=== PATIENT | female | born 1985 | race Caucasian/White ===

== ENCOUNTER 2018-07-14 13:13 | Inpatient (IN) | payer OTHER, BC ==
[2018-07-14] MEDS ORDERED: METHYLERGONOVINE 0.2 MG/ML 1 ML AMP IM PRN (13:57)
[2018-07-14] MEDS ORDERED: CARBOPROST TROMETHAMINE 250 MCG/ML 1 ML AMP IM PRN (13:57)
[2018-07-14] MEDS ORDERED: OXYTOCIN 10 UNIT/ML 1 ML VIAL IM PRN (13:57)
[2018-07-14] MEDS ORDERED: LIDOCAINE 0.5% (PF) 5 MG/ML (50 ML SDV) SQ PRN (13:57)
[2018-07-14] MEDS ORDERED: TERBUTALINE 1 MG/ML VIAL SQ PRN (13:57)
[2018-07-14] MEDS ORDERED: LABETALOL 200 MG TAB PO STA (14:00)
[2018-07-14] MEDS ORDERED: OXYTOCIN 30 UNITS/500 ML NS 30 UNIT in SALINE 1 500ML.BAG IV SCH (14:00)
[2018-07-14] MEDS: LACTATED RINGERS 1,000 ML IV SCH ×2 (14:18→16:54)
[2018-07-14 14:39] LABS: Basophils % (A) 0 %; Eosinophils # (A) 0.2 k/uL (0-0.7); Eosinophils % (A) 3 %; HCT 34.7 % (34.0-46.0); HGB 11.9 gm/dL (11.4-16.0); Lymphocytes # (A) 1.4 k/uL (1.0-4.8); Lymphocytes % (A) 16 %; MCH 29.3 pg (25.0-35.0); MCHC 34.1 g/dL (31.0-37.0); MCV 85.9 fL (80.0-100.0); Mean Platelet Volume 6.7; Monocytes # (A) 0.4 k/uL (0-1.0); Monocytes % (A) 5 %; Neutrophils # (A) 6.6 k/uL (1.3-7.7); Neutrophils % (A) 75 %; Platelet Count 269 k/uL (150-450); RBC 4.04 m/uL (3.80-5.40); RDW 14.6 % (11.5-15.5); WBC 8.8 k/uL (3.8-10.6)
[2018-07-14 14:44] LABS: Appearance,Urine Clear (Clear); Bacteria,Urine Rare /hpf; Bilirubin,Urine Negative (Negative); Blood,Urine Moderate (Negative); Color,Urine Yellow; Glucose,Urine (UA) Negative (Negative); Ketones,Urine Negative (Negative); Leukocyte Esterase,Urine Negative (Negative); Nitrite,Urine Negative (Negative); PH, Urine 6.5 (5.0-8.0); Protein,Urine Negative (Negative); RBC,Urine 39 /hpf (0-5); Specific Gravity,Urine 1.008 (1.001-1.035); Squamous Epithelial Cell,Urine <1 /hpf (0-4); Urobilinogen,Urine <2.0 mg/dL (<2.0); WBC,Urine 9 /hpf (0-5)
[2018-07-14 14:52] LABS: ALT 27 U/L (9-52); AST 17 U/L (14-36); Blood Urea Nitrogen 11 mg/dL (7-17); LDH 389 U/L (313-618); Uric Acid 5.9 mg/dL (3.7-7.4)
[2018-07-14 14:55] VITALS: BMI 29.5
[2018-07-14 15:16] LABS: INR 0.9 (<1.2); Partial Thromboplastin Time 23.1 sec (22.0-30.0); Prothrombin Time 9.4 sec (9.0-12.0)
[2018-07-14] MEDS ORDERED: SODIUM CHLORIDE 0.9% 100 ML BAG ONE (16:34)
[2018-07-14] MEDS ORDERED: fentaNYL (PF) 50 MCG/ML 5 ML AMP ONE (16:34)
[2018-07-14] MEDS ORDERED: ROPIVACAINE 5MG/ML 20ML VIAL ONE (16:34)
[2018-07-14] MEDS ORDERED: CITRIC ACID-SODIUM CITRATE 15 ML CUP PO ONE (17:51)
--- NOTE | 2018-07-14 18:00 | P.HPOB ---
History of Present Illness H&P Date: 07/14/18 Chief Complaint: Spontaneous rupture of membranes at 38-5/7 weeks This is a 32-year-old 2 para 1001 woman who presents at 38-5/7 weeks gestation with spontaneous rupture of membranes and mild contractions. Estimated due date is 07/23/2018 based on LMP consistent cystoscopy with second trimester ultrasound. She has been on labetalol 100 mg twice a day for history of chronic hypertension. When she initially presented to labor and delivery triage she did have some elevated blood pressures that resolved with 200 mg of oral labetalol. Rupture of membranes was confirmed and there was particulate meconium-stained fluid. Her cervix on on admission was 4 cm dilated, 50% effaced and the vertex in the -3 station. heart tones were category 2 upon admission and she was irregularly soila. Obstetric history: 2007 term normal spontaneous vaginal delivery of 7 lbs. 13 oz. male , uncomplicated. Laboratory data: Blood type O+, antibody screen negative, rubella immune, VDRL nonreactive, hepatitis B surface antigen negative, HIV negative, UDS negative, baseline 24-hour urine protein 204 mg per 24 hours, group B strep negative. Review of Systems All systems: negative Past Medical History Past Medical History: Hypertension Additional Past Medical History / Comment(s): chronic hypertension & anxiety History of Any Multi-Drug Resistant Organisms: None Reported Past Surgical History: No Surgical Hx Reported Past Anesthesia/Blood Transfusion Reactions: No Reported Reaction Past Psychological History: Anxiety Additional Psychological History / Comment(s): previously on xanax, currently managed with prozac Smoking Status: Former smoker Past Alcohol Use History: None Reported Past Drug Use History: None Reported - Past Family History Mother Family Medical History: Hypertension Additional Family Medical History / Comment(s): cardiac defect Medications and Allergies Home Medications Medication Instructions Recorded Confirmed Type FLUoxetine HCL [PROzac] 20 mg PO DAILY 07/14/18 07/14/18 History Labetalol [Trandate] 1 mg PO BID 07/14/18 07/14/18 History Pnv No.95/Ferrous Fum/Folic AC 1 tab PO DAILY 07/14/18 07/14/18 History [ Multivitamin Tablet] Allergies Allergy/AdvReac Type Severity Reaction Status Date / Time cetirizine [From Zyrtec] Allergy Rash/Hives Verified 07/14/18 13:31 diphenhydramine Allergy Rash/Hives Verified 07/14/18 13:30 [From Benadryl] Exam Vital Signs Temp Pulse Resp BP 07/14/18 14:02 98.8 F 110 H 18 183/109 07/14/18 13:38 102 H 16 172/112 Intake and Output 07/14/18 07/14/18 07/14/18 06:59 14:59 22:59 Other: Weight 83.007 kg Upon my initial evaluation she is comfortable with an epidural anesthetic. She is soila every 2-4 minutes with Pitocin at 4 mU/m. heart tones are category 2 with good accelerations however she did have some late appearing decelerations following administration of her epidural. No recurrent decelerations. On cervical examination the cervix is 6 cm dilated and 50% effaced. The infant feels asynclitic and vertex is in the -3 station. Bloody show and meconium-stained fluid noted. Results Result Diagrams: 07/14/18 14:20 07/14/18 14:20 Abnormal Lab Results - Last 24 Hours (Table) 07/14/18 07/14/18 Range/Units 14:20 14:20 Urine Blood Moderate H (Negative) Urine RBC 39 H (0-5) /hpf Urine WBC 9 H (0-5) /hpf Urine Bacteria Rare H (None) /hpf U Random Total Protein 19 H (<12) mg/dL Assessment and Plan (1) Meconium in amniotic fluid Current Visit: Yes Status: Acute Code(s): P96.83 - MECONIUM STAINING SNOMED Code(s): 7633929 (2) Spontaneous rupture of membranes Current Visit: Yes Status: Acute Code(s): RHR6939 - SNOMED Code(s): 971497558 (3) Hypertension complicating Current Visit: Yes Status: Acute Code(s): O16.9 - UNSPECIFIED MATERNAL HYPERTENSION, UNSPECIFIED TRIMESTER SNOMED Code(s): 01714170775559 Plan: This is a 32-year-old 2 para 1 woman admitted with spontaneous rupture of membranes, meconium-stained fluid, at 38-5/7 weeks gestation. History of chronic hypertension with blood pressures currently in the 140s over 70s status post epidural anesthetic. PIH labs were within normal limits. heart tones currently category 2 with moderate variability and occasional variable heart rate decelerations. Pitocin augmentation. She is group B strep negative and Rh+. I anticipate normal spontaneous vaginal delivery assuming resolution of current asynclitism.
[2018-07-14] MEDS ORDERED: ZOLPIDEM 5 MG TAB PO PRN (20:51)
[2018-07-14] MEDS ORDERED: ACETAMINOPHEN TAB 325 MG TAB PO PRN (20:51)
[2018-07-14] MEDS ORDERED: HYDROCORTISONE 2.5% RECTAL CREAM 30 GM TUBE RECTAL PRN (20:51)
[2018-07-14] MEDS ORDERED: SIMETHICONE 80 MG CHEWABLE PO PRN (20:51)
[2018-07-14] MEDS ORDERED: LANOLIN CREAM 5 GM TUBE TOPICAL PRN (20:51)
[2018-07-14] MEDS ORDERED: WITCH HAZEL 1 EACH MED..PAD TOPICAL PRN (20:51)
--- NOTE | 2018-07-14 20:51 | P.PROBDLV ---
Vaginal Delivery Note - . Vaginal Delivery Note: Findings: Female , weighing 7 lbs. 15 oz., 3610 g. No perineal lacerations. Nuchal cord 1. Intact, three-vessel cord placenta with calcifications. Delivery summary: This is a 32-year-old 2 para 1001 woman who presented at 38-5/7 weeks gestation with spontaneous rupture of membranes, meconium- stained fluid. She was not in active labor upon admission and Pitocin augmentation was initiated. She received an epidural anesthetic. She did require labetalol 200 mg 1 on admission for hypertension which then improved. She was nearing second stage of labor she did have some more elevated blood pressures in the 150s to 160s over 90s. heart tones were category 2 throughout her labor. She did progress to complete cervical dilation with moderate urge to push with her epidural anesthetic. She did commenced pushing and after an approximately 45 minute second stage of labor she was . With additional maternal effort in the Leonid position the patient's deliver the vertex from the right occiput anterior position. Copious meconium-stained fluid was noted. Nuchal cord 1 was reduced. The anterior followed by the posterior shoulders were then delivered without difficulty and the rest the was delivered onto the field. The QUARR[employer] MANAGER was present at the bedside however the infant had spontaneous cry upon delivery. The nose and mouth were bulb suctioned and the was placed on the maternal abdomen. The cord was clamped and cut. The was taken to the warmer for further evaluation where Apgars were 7 at 1 minute and 9 at 5 minutes. Weight was 7 lbs. 15 oz. An intact, three-vessel cord placenta was expressed after an approximately 5 minute third stage of labor. It was noted to be calcified. The uterus was massaged and was firm below the level of the umbilicus. The vagina and cervix were inspected and no lacerations were noted. All counts were correct and both mother and infant were doing well post delivery in the room.
[2018-07-14] MEDS ORDERED: FAMOTIDINE 20 MG TAB PO PRN (20:55)
[2018-07-14] MEDS ORDERED: OXYTOCIN 20 UNITS/1000 ML NS 1,000 ML IV SCH (21:00)
[2018-07-14] MEDS: LABETALOL 100 MG TAB PO SCH (21:47)
[2018-07-15 06:49] LABS: Basophils % (A) 0 %; Eosinophils # (A) 0.1 k/uL (0-0.7); Eosinophils % (A) 1 %; HCT 31.1 % (34.0-46.0); HGB 10.3 gm/dL (11.4-16.0); Lymphocytes # (A) 1.2 k/uL (1.0-4.8); Lymphocytes % (A) 16 %; MCH 29.1 pg (25.0-35.0); Mean Platelet Volume 7.1; Monocytes # (A) 0.3 k/uL (0-1.0); Monocytes % (A) 4 %; Neutrophils # (A) 5.7 k/uL (1.3-7.7); Neutrophils % (A) 77 %; Platelet Count 226 k/uL (150-450); RBC 3.53 m/uL (3.80-5.40); RDW 14.8 % (11.5-15.5); WBC 7.4 k/uL (3.8-10.6)
--- NOTE | 2018-07-15 07:13 | P.DS ---
Providers Date of admission: 07/14/18 14:01 Expected date of discharge: 07/15/18 Attending physician: Korina Murray Primary care physician: Stated None - Discharge Diagnosis(es) (1) Meconium in amniotic fluid Current Visit: Yes Status: Acute (2) Spontaneous rupture of membranes Current Visit: Yes Status: Acute (3) Hypertension complicating Current Visit: Yes Status: Acute (4) Normal spontaneous vaginal delivery Current Visit: Yes Status: Acute (5) Nuchal cord Current Visit: Yes Status: Acute Hospital Course: This is a 32-year-old 2 now para 2 woman who presented with spontaneous rupture of membranes at 38+ weeks gestation. She had meconium stained fluid. She has a history of chronic hypertension and her blood pressures were elevated on presentation. These were controlled with oral labetalol. She did undergo Pitocin augmentation of labor and received an epidural anesthetic. She uncomplicated first stage of labor and went on to deliver a liveborn female infant over an intact perineum with Apgars of 7 at 1 minute and 9 at 5 minutes. Please see the delivery summary for details. The patient's on immediate course was uncomplicated. She had some initial blood pressures in the 160s over 80s that improved to 130s over 70s with resuming her normal dose of oral labetalol. She had had PIH labs on admission were within normal limits. She requested discharge home at 24 hours post delivery which was granted pending ongoing stable blood pressures. She will is instructed to return to the office in 1 week for blood pressure check and to continue her oral labetalol 100 mg twice a day. Procedures: Normal spontaneous vaginal delivery Patient Condition at Discharge: Good Plan - Discharge Summary Discharge Rx Participant: Yes New Discharge Prescriptions: New Ibuprofen [Motrin] 600 mg PO Q6HR PRN tab PRN Reason: Mild Pain Or Fever >= 100.5 Labetalol [Trandate] 100 mg PO BID #30 tab Continue FLUoxetine HCL [PROzac] 20 mg PO DAILY No Action Labetalol [Trandate] 1 mg PO BID Pnv No.95/Ferrous Fum/Folic AC [ Multivitamin Tablet] 1 tab PO DAILY Discharge Medication List FLUoxetine HCL [PROzac] 20 mg PO DAILY 07/14/18 [History] Labetalol [Trandate] 1 mg PO BID 07/14/18 [History] Pnv No.95/Ferrous Fum/Folic AC [ Multivitamin Tablet] 1 tab PO DAILY [History] Ibuprofen [Motrin] 600 mg PO Q6HR PRN tab 07/15/18 [Rx] Labetalol [Trandate] 100 mg PO BID #30 tab 07/15/18 [Rx] Follow up Appointment(s)/Referral(s): Rosario Arias MD [STAFF PHYSICIAN] - 1 Week (Blood pressure check) Activity/Diet/Wound Care/Special Instructions: Follow-up in the office in 1 week for blood pressure check and 6 weeks . Call with any concerning signs or symptoms including headache, visual changes, heavy vaginal bleeding, severe abdominal pain, fever greater than 101, swelling or redness of the lower extremities, foul vaginal discharge , or signs of depression. Nothing in the vagina for 6 weeks after delivery, specifically no intercourse. Continue labetalol 100 mg twice daily at home. Discharge Disposition: HOME SELF-CARE
[2018-07-15] MEDS: IBUPROFEN 600 MG TAB PO PRN ×3 (08:11→19:50)
[2018-07-15] MEDS: LABETALOL 100 MG TAB PO SCH ×2 (08:11→19:51)
[2018-07-15] MEDS: SENNOSIDES-DOCUSATE SODIUM 1 EACH TAB PO SCH ×2 (08:12→19:51)
[2018-07-15 08:54] VITALS: RESP 18
[2018-07-15] MEDS: LACTATED RINGERS 1,000 ML IV SCH (08:56)
[2018-07-15 22:13] VITALS: PULSE 97; TEMP 97.8
[2018-07-18 08:46] VITALS: BP 162/95
--- NOTE | 2018-07-18 08:46 | P.MSEPDOC ---
Presenting Problems - Arrival Data Date of Arrival on Unit: 07/14/18 Time of Arrival on Unit: 14:30 Mode of Transport: Ambulatory - Complaint OB-Reason for Admission/Chief Complaint: Rule Out SROM Medical History - Information : 2 Para: 1 Term: 1 : 0 Abortions: Spontaneous or Elective: 0 Number of Living Children: 1 - Gestational Age Gestational Age by DARIA (wks/days): 38 Weeks and 5 Days - History Complications: Chronic HTN, Hx. Substance Abuse Comment: hx marajwua use prior to preg. and former smoker Review of Systems - Review of Systems Constitutional: No problems Breast: No problems ENT: No problems Cardiovascular: No problems Respiratory: No problems Gastrointestinal: No problems Genitourinary: No problems Musculoskeletal: No problems Neurological: No problems Skin: No problems Vital Signs - Temperature Temperature: 97.8 F Temperature Source: Oral - Pulse Right Radial Pulse Rate: 97 Pulse Assessment Method: Auscultation - Respirations Respiratory Rate: 18 Oxygen Delivery Method: Room Air - Blood Pressure Right Arm Blood Pressure: 162/95 Blood Pressure Mean: 117 Blood Pressure Source: Automatic Cuff Left Arm Blood Pressure: 154/90 Blood Pressure Mean: 111 Blood Pressure Source: Automatic Cuff Medical Screen Scoring (Pre) - Cervical Exam Dilation: 4-7 cm = 2 Effacement: More than 50% = 2 Membranes: Ruptured = 3 - Uterine Contractions Frequency: > 5 minutes apart = 1 Duration: > 40 seconds = 2 - Maternal Vital Signs Maternal Temperature: N/A Maternal Blood Pressure: Systolic >139 = 2 Signs of Preeclampsia: N/A Maternal Respirations: N/A - Pain Assessment Pain Location and Character: Abdomen Pain Scale Used: Numeric (1 - 10) Pain Description: Cramping Pain Frequency: Intermittent Pain Behavior: Vocalization Pain Aggravating Factors: Contractions - Maternal Trauma Maternal Trauma: N/A - Total Score Total Score (Pre): 12 - Level of Risk Level of Risk: High (10+) Physician Notification (Pre) - Physician Notified Physician Notified Date: 07/14/18 Physician Notified Time: 14:00 Physician/Practitioner Notifed:: sia Spoke With: sia New Order Received: Yes (adm orders given for ob delivery) Disposition - Disposition OB Disposition: Admit Discharge Date: 07/15/18 Discharge Time: 21:50 I agree with the RN Medical Screening Exam: Yes Risk & Benefit of care provided described in d/c instruction: Yes Diagnosis: 38 WEEKS GESTATION OF
== END 2018-07-15 21:50 | disposition home or self-care (01) | DRG 806 ==
LOC: FBPOP 13:13 → 4FBP 14:01
PROVIDERS: ADMIT Obstetrics & Gynecology; ATTEND Obstetrics & Gynecology
PROC: 10E0XZZ Delivery of Products of Conception, External Approach (ICD-10-PCS; principal; 2018-07-14)
PROC: 3E0R3BZ Introduction of Anesthetic Agent into Spinal Canal, Percutaneous Approach (ICD-10-PCS; 2018-07-14)
DX: O77.0 Labor and delivery complicated by meconium in amniotic fluid (principal); O10.92 Unspecified pre-existing hypertension complicating childbirth; Z37.0 Single live birth; I10 Essential (primary) hypertension; O99.344 Other mental disorders complicating childbirth; O69.81X0 Labor and delivery complicated by cord around neck, without compression, not applicable or unspecified; F41.9 Anxiety disorder, unspecified; O76 Abnormality in fetal heart rate and rhythm complicating labor and delivery; O32.8XX0 Maternal care for other malpresentation of fetus, not applicable or unspecified; Z3A.38 38 weeks gestation of pregnancy; Z79.899 Other long term (current) drug therapy; Z87.891 Personal history of nicotine dependence; Z88.8 Allergy status to other drugs, medicaments and biological substances; Z82.49 Family history of ischemic heart disease and other diseases of the circulatory system
CPT/HCPCS: 59025; 81001; 81003; 82565; 82570; 83615; 84112; 84156; 84450; 84460; 84520; 84550; 85025; 85610; 85730; 86850; 86900; 86901; 99213